=== PATIENT | female | born 1985 | race Caucasian/White ===

== ENCOUNTER 2017-11-13 14:27 | Emergency (ER) | payer OTHER ==
[~2017-11-13] VITALS: Ht 160 cm; Wt 89.0 kg
[~2017-11-13 14:27] MED LIST: FLEXERIL5 M1 PO; MUCINEX600 MG PO; NAPROSYN500 MG PO; ZITHROMAX250 MG PO
[2017-11-13 18:01] VITALS: BP 145/76
[2017-11-13] MEDS ORDERED: ULTRAM50 M1 PO (18:05)
== END 2017-11-13 18:17 | disposition home or self-care (01) | DRG 552 ==
LOC: ED 14:27
DX: S13.9XXA Sprain of joints and ligaments of unspecified parts of neck, initial encounter (principal); S33.5XXA Sprain of ligaments of lumbar spine, initial encounter; F17.210 Nicotine dependence, cigarettes, uncomplicated; V49.40XA Driver injured in collision with unspecified motor vehicles in traffic accident, initial encounter

== ENCOUNTER 2020-11-28 09:32 | Emergency (ER) | payer BC ==
[~2020-11-28] VITALS: Ht 160 cm; Wt 100.0 kg
[~2020-11-28 09:32] MED LIST changes: +ULTRAM50 M1 PO
[2020-11-28] MEDS ORDERED: PROAIR DIG108 MCG/AC IN (09:54)
[2020-11-28 10:40] LABS: HEMATOCRIT 45.9 % (37.0-47.0); HEMOGLOBIN 14.9 g/dl (12.0-16.0); IMMATURE GRANULOCYTES 0.2 % (0.0-5.0); MEAN CELL VOLUME 88.4 fL CALC (80.0-100.0); MEAN CORPUSCULAR HGB 28.7 pG CALC (26.0-32.0); MEAN CORPUSCULAR HGB CONC 32.5 g/dL CAL (32.0-36.0); RED BLOOD COUNT 5.19 mill/uL (4.20-5.60); RED CELL DISTRI WIDTH 13.7 % (11.5-15.5)
[2020-11-28 11:00] LABS: ALBUMIN 4.2 g/dL (3.2-5.0); ALKALINE PHOSPHATASE 113 u/l (38-126); ANION GAP 14 (6-22 (CALC)); BILIRUBIN, TOTAL 0.2 mg/dL (0.0-1.4); BUN 6 mg/dL (7-17); BUN/CREATININE RATIO 10 (12-20 (CALC)); CHLORIDE 110 mmol/l (95-108); CREATININE 0.6 mg/dL (0.5-1.0); GFR > 60 ML/MIN (>=60 (CALC)); GFR FOR AFR.AMER. > 60 ML/MIN (>=60 (CALC)); POTASSIUM 3.8 mmol/l (3.5-5.1); SGOT/AST 34 u/l (14-36); SODIUM 142 mmol/l (137-146); TOTAL PROTEIN 7.5 g/dL (6.3-8.2)
[2020-11-28 11:02] LABS: CARBON DIOXIDE 22 mmol/l (22-30)
[2020-11-28] MEDS ORDERED: MEDDOSEPAK PO (11:39)
[2020-11-28] MEDS ORDERED: KEFLEX500 M1 PO (11:39)
[2020-11-28 11:50] VITALS: BP 121/88
== END 2020-11-28 11:50 | disposition home or self-care (01) | DRG 203 ==
LOC: ED 09:32
PROVIDERS: Emergency Medicine
DX: J45.909 Unspecified asthma, uncomplicated (principal); F17.200 Nicotine dependence, unspecified, uncomplicated; Z20.822 Contact with and (suspected) exposure to COVID-19